=== PATIENT | female | born 1990 | race Caucasian/White ===

== ENCOUNTER 2018-01-12 11:09 | Observation (INO) ==
[2018-01-12] MEDS ORDERED: ONDANSETRON 4 MG/2 ML INJECTION IVP ONE (11:27)
[2018-01-12] MEDS ORDERED: NS 1,000 ML IV ONE (11:27)
[2018-01-12] MEDS: SALINE FLUSH 10ml SYRINGE IVF PRN ×2 (11:38→14:21)
--- NOTE | 2018-01-12 12:30 | XRay Report ---
INDICATION: Tachycardia PROCEDURE: CHEST 2-VIEWS UPRIGHT (PA & LAT) Encounter: Initial COMPARISON: June 05, 2017 FINDINGS: The lungs are clear without evidence of focal abnormal airspace opacity. There is no pleural effusion or pneumothorax. The heart size, mediastinal contours and pulmonary vascularity are within normal limits. There is no significant skeletal abnormality. IMPRESSION: No acute cardiopulmonary disease. .
--- NOTE | 2018-01-12 14:11 | Emergency Department Report ---
Cardiac General HPI - General Chief Complaint: Arrhythmia/Palpitations Stated Complaint: N/V, coughing, stomach pain, migraines Time Seen by Provider: 01/12/18 11:27 Source: patient, RN notes reviewed, old records reviewed Mode of arrival: ambulatory Limitations: no limitations - History of Present Illness HPI narrative: 27yo woman presents to the ER with c/o chest pain. Pt has had lightheadedness, palpitations, cough, and abdominal pain for the last two months. Pt states that she does not have a PCM. Has not sought treatment for her sx in that time. Pt repeatedly denies drug use, episodic or ongoing. Initially told nursing staff that her sx were only 1mo in duration. Occurred At: home Onset (ago): month(s) Duration: constant Severity: severe Context: occurred during rest Activites at Onset: none Prior Chest Pain/Cardiac Workup: other (Meth use) - Related Data Home Medications Medication Instructions Recorded Confirmed No known Home medications [No home 01/12/18 01/12/18 meds] Allergies Allergy/AdvReac Type Severity Reaction Status Date / Time No Known Allergies Allergy Verified 01/12/18 11:41 Review of Systems All systems: reviewed and negative except as stated Cardiovascular: Reports: as per HPI, chest pain, palpitations. Denies: dyspnea on exertion, orthopnea, edema, syncope, paroxysmal nocturnal dyspnea Respiratory: Reports: as per HPI, cough. Denies: dyspnea, wheezes, hemoptysis, stridor [facility] Patient Stated Medical History Hx Urinary Tract Infection Yes Depression Yes Substance Use Disorder Yes: METH,BENZOS,MARIJUANA Medical History Updates: Anxiety. Depression. Marijuana abuse. Methamphetamine abuse - Social History Smoking status: Current every day smoker (1/2ppd) Physical Exam - Limitations Limitations: no limitations - General General appearance: alert, anxious, in distress - Normal Exams: Head:: Normocephalic without trauma Eyes:: Pupils are PERRLA w/ EOMI, No scleral icterus, irritation, or foreign bodies noted ENMT:: No facial trauma, nasal exudates, pharyngeal erythema, or exudates are noted Neck:: Full range of motion, without adenopathy Chest/Respirations:: Clear all devi, with good airflow, and symmetry bilaterally Cardiovascular:: Regular rate and rhythm (Sinus tachycardia), without murmur or gallop, Pulses 2+ all extremities, capillary refill, <2 seconds all extremities Abdomen:: Bowel sounds positive, soft, non-tender, non-distended, no hepatosplenomegaly, masses or bruits noted Lymphatic:: No lymphadenopathy Musculoskeletal:: No tenderness, or deformity noted, good range of motion Integumentary:: No rashes, hives, or bruising noted Neurological:: Patient is alert, cranial nerves, motor/sensory/cerebellar, exams w/o gross deficits - Psychiatric Psychiatric exam: Present: agitated, anxious - Expanded Psychiatric Exam Expanded psych exam: Present: poor eye contact, pressured speech, psychomotor agitation, delusional, paranoid, perseverating, restlessness, uncooperative Course - Consultations Consultation #1: Hospitalist: Will admit for obs, until pt is sober. Time: 15:43 Vital Signs Temperature 98.6 F 01/12/18 11:20 Pulse Rate 136 H 01/12/18 11:20 Respiratory Rate 16 01/12/18 11:20 Blood Pressure 146/83 H 01/12/18 11:20 Pulse Oximetry 98 01/12/18 11:20 Temperature 98.6 F 01/12/18 11:20 Pulse Rate 95 01/12/18 15:41 Respiratory Rate 16 01/12/18 15:41 Blood Pressure 135/89 01/12/18 15:41 Pulse Oximetry 98 01/12/18 15:41 Cardiac General - MDM Narrative Medical decision making narrative: Pt with obvious methamphetamine intoxication on exam. UDS confirms meth use. Initially, pt said that she had a ride and someone to watch her. Later, pt admitted that she was unable to contact anyone. Pt is not sober; actively hallucinating/tweaking. Will contact the hospitalist for obs admission until sober enough to be released. - Differential Diagnosis Differential diagnosis: Likely: palpitations, anxiety, sinus tachycardia (Meth intoxication) - Medical Records Attestation: I reviewed the patient's medical records. - Lab Data Attestation: I reviewed the patient's lab results. Result diagrams: 01/12/18 11:36 01/12/18 11:36 Lab Results 01/12/18 01/12/18 01/12/18 Range/Units 11:36 11:36 11:36 WBC 7.6 (4.5-11.0) T/MM3 RBC 4.76 (4.00-5.20) M/MM3 Hgb 14.1 (12-16) GM/DL Hct 40.8 (36-46) % MCV 85.7 (80-100) UM3 MCH 29.6 (26-34) UUG MCHC 34.6 (31-37) GM/DL RDW Std Deviation 39.7 (36.9-50.2) FL Plt Count 324 (130-400) T/MM3 MPV 9.7 (9.4-12.4) UM3 Immature Gran % (Auto) 0.1 (0.0-0.5) % Neut % (Auto) 52.4 (33-66) % Lymph % (Auto) 40.8 (23-45) % [place] % (Auto) 6.1 (0-9.0) % Eos % (Auto) 0.3 (0-4) % Baso % (Auto) 0.3 (0-2) % Neut # (Auto) 4.0 (1.8-7.7) T/MM3 Lymph # (Auto) 3.1 (1-4.8) T/MM3 [place] # (Auto) 0.5 (0-0.8) T/MM3 Eos # (Auto) 0.0 (0-0.5) T/MM3 Baso # (Auto) 0.0 (0-0.2) T/MM3 Abs Immat Gran (auto) 0.01 (0.00-0.03) T/MM3 Turbidity < 20 (0-20) Sodium 145 (136-146) MEQ/L Potassium 3.0 L (3.6-5) MEQ/L Chloride 107 (98-107) MEQ/L Carbon Dioxide 20 L (22-30) MEQ/L Anion Gap 18 H (5-15) meq/L BUN 9.0 (7-17) MG/DL Creatinine 0.9 (0.7-1.2) mg/dL Estimated Creat Clear 84 (>50) mL/min GFR Calculation 76 (>60) mL/min BUN/Creatinine Ratio 10 (6-26) RATIO Glucose 90 (65-110) MG/DL Calculated Osmolality 278 (261-280) MOSM/KG Calcium 10.3 H (8.4-10.2) MG/DL Total Bilirubin 0.40 (0.20-1.30) MG/DL Icterus Index < 2 (0-7) AST 24 (14-36) U/L ALT 11 (1-35) U/L Alkaline Phosphatase 71 (38-126) U/L Total Protein 8.2 (6.3-8.2) g/dL Albumin 5.0 (3.5-5.0) g/dL Globulin 3.2 (2.4-3.6) G/DL Albumin/Globulin Ratio 1.6 (1.1-2.2) RATIO Serum , Qual Negative (Negative) Specimen Hemolysis < 15 (0-25) Ur Collection Type Urine Color (YELLOW) Urine Clarity Urine pH (5.0-8.0) Ur Specific [place] (1.015-1.025) Urine Protein (NEGATIVE) Urine Glucose (UA) (NEGATIVE) Urine Ketones (NEGATIVE) Urine Occult Blood (NEGATIVE) Urine Nitrate (NEGATIVE) Urine Bilirubin (NEGATIVE) Urine Urobilinogen (NORMAL) EU/DL Ur Leukocyte Esterase (NEGATIVE) Urinalysis Comment Salicylates < 1.0 L (2-20) MG/DL Urine Opiates Screen (Negative) ng/mL Ur Oxycodone Screen (Negative) ng/mL Urine Methadone Screen (Negative) ng/mL Ur Propoxyphene Screen (Negative) ng/mL Acetaminophen < 10 L (10-30) ug/mL Ur Barbiturates Screen (Negative) ng/mL U Tricyclic Antidepress (Negative) ng/mL Ur Phencyclidine Scrn (Negative) ng/mL Ur Amphetamines Screen (Negative) ng/mL U Methamphetamines Scrn (Negative) ng/mL U Benzodiazepines Scrn (Negative) ng/mL Urine Cocaine Screen (Negative) ng/mL U Cannabinoids Screen (Negative) ng/mL Ur Drug Screen Confirm Alcohol, Quantitative 50 (<10) mg/dL 01/12/18 01/12/18 01/12/18 Range/Units 12:57 12:57 12:57 WBC (4.5-11.0) T/MM3 RBC (4.00-5.20) M/MM3 Hgb (12-16) GM/DL Hct (36-46) % MCV (80-100) UM3 MCH (26-34) UUG MCHC (31-37) GM/DL RDW Std Deviation (36.9-50.2) FL Plt Count (130-400) T/MM3 MPV (9.4-12.4) UM3 Immature Gran % (Auto) (0.0-0.5) % Neut % (Auto) (33-66) % Lymph % (Auto) (23-45) % [place] % (Auto) (0-9.0) % Eos % (Auto) (0-4) % Baso % (Auto) (0-2) % Neut # (Auto) (1.8-7.7) T/MM3 Lymph # (Auto) (1-4.8) T/MM3 [place] # (Auto) (0-0.8) T/MM3 Eos # (Auto) (0-0.5) T/MM3 Baso # (Auto) (0-0.2) T/MM3 Abs Immat Gran (auto) (0.00-0.03) T/MM3 Turbidity (0-20) Sodium (136-146) MEQ/L Potassium (3.6-5) MEQ/L Chloride (98-107) MEQ/L Carbon Dioxide (22-30) MEQ/L Anion Gap (5-15) meq/L BUN (7-17) MG/DL Creatinine (0.7-1.2) mg/dL Estimated Creat Clear (>50) mL/min GFR Calculation (>60) mL/min BUN/Creatinine Ratio (6-26) RATIO Glucose (65-110) MG/DL Calculated Osmolality (261-280) MOSM/KG Calcium (8.4-10.2) MG/DL Total Bilirubin (0.20-1.30) MG/DL Icterus Index (0-7) AST (14-36) U/L ALT (1-35) U/L Alkaline Phosphatase (38-126) U/L Total Protein (6.3-8.2) g/dL Albumin (3.5-5.0) g/dL Globulin (2.4-3.6) G/DL Albumin/Globulin Ratio (1.1-2.2) RATIO Serum , Qual (Negative) Specimen Hemolysis (0-25) Ur Collection Type Urine, void-cc/notcc Urine Color Yellow (YELLOW) Urine Clarity Clear Urine pH 7.0 (5.0-8.0) Ur Specific [place] <=1.005 L (1.015-1.025) Urine Protein Negative (NEGATIVE) Urine Glucose (UA) Negative (NEGATIVE) Urine Ketones Negative (NEGATIVE) Urine Occult Blood Negative (NEGATIVE) Urine Nitrate Negative (NEGATIVE) Urine Bilirubin Negative (NEGATIVE) Urine Urobilinogen 0.2 (NORMAL) EU/DL Ur Leukocyte Esterase Negative (NEGATIVE) Urinalysis Comment Microscopic not ind. Salicylates (2-20) MG/DL Urine Opiates Screen Negative (Negative) ng/mL Ur Oxycodone Screen Negative (Negative) ng/mL Urine Methadone Screen Negative (Negative) ng/mL Ur Propoxyphene Screen Negative (Negative) ng/mL Acetaminophen (10-30) ug/mL Ur Barbiturates Screen Negative (Negative) ng/mL U Tricyclic Antidepress Negative (Negative) ng/mL Ur Phencyclidine Scrn Negative (Negative) ng/mL Ur Amphetamines Screen Positive (Negative) ng/mL U Methamphetamines Scrn Positive (Negative) ng/mL U Benzodiazepines Scrn Negative (Negative) ng/mL Urine Cocaine Screen Negative (Negative) ng/mL U Cannabinoids Screen Negative (Negative) ng/mL Ur Drug Screen Confirm Sent out Alcohol, Quantitative (<10) mg/dL - Radiology Data Attestation: I reviewed the patient's radiology results. CXR: IMPRESSION: No acute cardiopulmonary disease. - EKG Data EKG #1 EKG attestation: Yes: I reviewed and interpreted this EKG. EKG shows normal: sinus rhythm, axis, intervals, QRS complexes Rate: tachycardia Interpretation: nonspecific ST-T wave changes Disposition Clinical Impression: Anxiety, Palpitations, Methamphetamine abuse Disposition: 02 To [facility] Print Language: Stateless Condition: Improved Instructions: Methamphetamine Abuse (ED), Anxiety (ED) Additional Instructions: You have symptoms of methamphetamine intoxication (anxiety, confusion, dehydration, chest pain, fast heart rate, nausea, headache, etc). We have given you medication that will help to prevent most of those symptoms. Follow up with your doctor in the next few days for reevaluation and treatment, if needed. Prescriptions: No Action No known Home medications [No home meds] 0 [place]0 [facility] [place]errals: Primary Care,You Choose [Primary Care Provider] - Time of Disposition: 14:36 - Seen By: physician
[2018-01-12 16:58] VITALS: BMI 22.2
--- NOTE | 2018-01-12 17:28 | History & Physical Report ---
History of Present Illness Date: 01/12/18 Chief complaint: Anxiety HPI: Pao Diggs is a healthy 27 y/o who presented to [facility] [facility] on 01/12/18 for further eval of anxiety/panic symptoms. She notes hx of anxiety - she frequently has sx of heart racing, chest pain, dyspnea, dizziness/lightheadedness, sweating, blurred vision, weakness. She also feels depressed but denies SI or thoughts of harming others. She denies any recent triggers. She also notes a productive cough with green sputum x2 months. She's had intermittent fevers, chills, sinus congestion/drainage, sore throat, and allergy symptoms as well. She's had severe abdominal pain and last night vomited twice. She actually has abdominal pain frequently, and it's periumbilical and LUQ. She hasn't been able to eat anything today but has been able to keep up on fluids. She occ has GERD and frequently has indigestion. She's had a few episodes of diarrhea - no blood seen. She denies any urinary problems. No leg swelling. No injuries or wounds. In the ED her HR was tachy at 136. After a liter of NS and IV ativan it slowed into the 90s. EKG showed sinus tachycardia. CXR was unremarkable. CBC was stable. She was hypokalemic with K of 3.0. UDS was pos for meth. She states she smoked meth for the 1st time 2 days ago. She also took a hit of marijuana last night, along with a couple alcoholic drinks. With her tachycardia, anxiety/ depression, and concern for wreckless behaviors, she was admitted to obs status under the hospitalist service. Review of Systems All systems PM: 10-point ROS was reviewed, no additional remarkable complaints except - Constitutional Constitutional: Present: as per HPI - EENMT Eyes: Present: as per HPI Nose: Present: as per HPI Mouth/Throat: Present: as per HPI - Cardiovascular Cardiovascular: Present: as per HPI Vascular: Present: see HPI - Respiratory Respiratory: Present: as per HPI - Gastrointestinal Gastrointestinal: Present: as per HPI - Genitourinary Genitourinary: Present: as per HPI, metrorrhagia - Musculoskeletal Musculoskeletal: Present: muscle weakness (with anxiety) - Integumentary/Breasts Integumentary: Absent: rash, wounds - Neurological Neurological: Present: as per HPI - Psychiatric Psychiatric: Present: as per HPI - Hematologic/Lymphatic Hematologic/Lymphatic: Absent: easy bleeding, easy bruising - Allergic/Immunologic Allergic/Immunologic: Present: as per HPI Past Medical History Medical History: Medical History (Last Updated 01/12/18 @ 17:31 by Maye Buckley APRN) Anxiety Depression Polysubstance abuse Family History Updates: Mother and Father are both healthy. Both grandmothers of heart attacks. 4 sisters and 1 brother - all healthy. Family History: As Above - Social History Smoking status: Current every day smoker Substance use type: marijuana, methamphetamine Alcohol intake frequency: 3 or more drinks per day (once/week) Current occupational status: unemployed Medications Home Medications Medication Instructions Recorded Confirmed Type No known Home medications [No home 01/12/18 01/12/18 History meds] Allergies Allergy/AdvReac Type Severity Reaction Status Date / Time No Known Allergies Allergy Verified 01/12/18 11:41 Exam Vital Signs: Temperature 98.6 F 01/12/18 11:20 Pulse Rate 95 01/12/18 15:41 Respiratory Rate 16 01/12/18 15:41 Blood Pressure 135/89 01/12/18 15:41 Pulse Oximetry 98 01/12/18 15:41 Telemetry Rhythm: Sinus Rhythm Height/Weight/BMI: Height 1.63 m Weight 58.8 kg Body Mass Index 22.2 - Constitutional Present: no acute distress, well nourished, well developed, thin - Routine HEENT Exam Head: Present: normocephalic Eye: Present: PERRL. Absent: conjunctival icterus, scleral injection ENT: Present: mucous membranes moist - Routine Neck Exam Present: supple. Absent: lymphadenopathy - Routine Respiratory Exam Present: CTA bilaterally - Routine Cardiovascular Exam Present: RRR, S1, S2 - Routine Abdominal Exam Present: soft, normoactive bowel sounds, non distended, non tender - Routine Extremities Exam Present: no edema, pulses intact, normal capillary refill. Absent: calf tenderness - Routine Skin Exam Present: intact, dry, warm - Routine Neurological Exam Present: alert, oriented X3, CN II-XII intact, moving all extremities, vision grossly intact, hearing grossly intact, normal speech. Absent: sensory deficit , motor deficit, altered mental status, facial asymmetry - Routine Psychiatric Exam Present: normal thought process, cooperative Results - Labs CBC & Chem 7: 01/12/18 11:36 01/12/18 11:36 Assessment and Plan (1) Methamphetamine abuse Current visit: Yes Status: Acute Assessment and Plan: Assessment Polysubstance abuse Hypokalemia (POA) Sinus tachycardia Anxiety/depression Plan Admit, obs status to CCU. Received 1L of IVF in ED - will start 1/2 NS with KCl @ 100 ml/hr. Hypokalemia - give 40 mEq KCl PO in addition to IVF. Check mg. Sinus tach - improving. Currently rate is in the 90s. Start ranitidine for indigestion/GERD sx. No suicidal ideation. Likely would benefit from outpt psych eval. Consult case management. RT consulted for tobacco cessation. EKG/CXR reviewed. D/W ED RN. DVT Prophylaxis: SCD's Resuscitation Status: Full Code - Physician Narrative Physician: Darryl Valiente MD Narrative: Date: 01/12/18 Time: 2007 Have independently interviewed and examined pt. Chart reviewed. Case discussed with ED physician and my [employer]IST. Care plan developed with my supervision; agree with above. Presented to ED secondary to increasing anxiety and palpitations. Noted [place] for the past 2 months. Evaluated in ED. Lab unremarkable except for hypokalemia and positive meth. Very anxious in ED. With increased anxiousness, not able to get ride home. Place in OBS for monitoring. Since admission, has been doing well. Nursing reports patient has been very pleasant. HR has varied. Breathing well. Lungs: Clear bilaterally, no distress CV: regular AB: soft flat nt MSE: awake alert Plan: OBS. Close monitoring in CCU overnight. IVF for support. Suspect discharge tomorrow if continues to do well. Hospital Course Summary Disclaimer: The visit summary below is not to be considered part of the above Progress Note. Hospital Course: 01/12/18 Admit, obs status to CCU. Received 1L of IVF in ED - will start 1/2 NS with KCl @ 100 ml/hr. Hypokalemia - give 40 mEq KCl PO in addition to IVF. Check mg. Sinus tach - improving. Currently rate is in the 90s. Start ranitidine for indigestion/GERD sx. No suicidal ideation. Likely would benefit from outpt psych eval. RT consulted for tobacco cessation.
[2018-01-12] MEDS ORDERED: ONDANSETRON 4 MG/2 ML INJECTION IVP PRN (17:37)
[2018-01-12] MEDS ORDERED: ACETAMINOPHEN 500 MG TABLET PO PRN (17:37)
[2018-01-12] MEDS ORDERED: 1/2 NS with KCL 20mEq 1,000 ML IV SCH (17:45)
[2018-01-12] MEDS: RANITIDINE 150 MG TABLET PO SCH (20:25)
[2018-01-12] MEDS: NICOTINE 14 MG PATCH TD SCH (21:57)
[2018-01-13] MEDS ORDERED: ONDANSETRON ODT 4 MG TABLET PO PRN (05:18)
[2018-01-13] MEDS ORDERED: NICOTINE 14 MG PATCH TD SCH (09:00)
[2018-01-13] MEDS ORDERED: NICOTINE PATCH REMOVAL TD SCH (09:00)
[2018-01-13] MEDS: RANITIDINE 150 MG TABLET PO SCH (10:20)
--- NOTE | 2018-01-13 10:20 | Progress Note ---
- Date 01/13/18 Subjective: F/U: Polysubstance abuse, Hypokalemia (POA) Doing much better this morning. Not having palpitations. Anxiety improved. Did have nausea this am with slight amount of emesis. Breathing well. Steady when up. Not agitated or restless. Objective Vital signs: Temperature 98.5 F 01/13/18 04:00 Pulse Rate 81 01/13/18 05:00 Respiratory Rate 20 01/13/18 05:00 Blood Pressure 118/66 01/13/18 05:00 Pulse Oximetry 99 01/13/18 05:00 Height/Weight/BMI: Height 1.63 m Weight 58.8 kg Body Mass Index 22.2 - Constitutional Present: no acute distress, well nourished, well developed, average body habitus , cooperative. Absent: combative, agitated, somnolent, obtunded - Routine HEENT Exam Head: Present: normocephalic, atraumatic Eye: Present: EOMI, PERRL, normal accommodation ENT: Present: mucous membranes moist - Routine Respiratory Exam Present: CTA bilaterally. Absent: rales, respiratory distress, rhonchi, stridor , wheezes, crackles - Routine Cardiovascular Exam Present: RRR, no murmur - Routine Abdominal Exam Present: soft, normoactive bowel sounds, non distended, non tender. Absent: guarding - Routine Extremities Exam Present: no edema, pulses intact. Absent: cyanosis, clubbing - Routine Musculoskeletal Exam Musculoskeletal: Present: no clubbing or cyanosis, normal strength - Routine Skin Exam Present: dry, warm - Routine Neurological Exam Present: alert, oriented X3, CN II-XII intact, moving all extremities, vision grossly intact, hearing grossly intact, normal speech. Absent: motor deficit, altered mental status - Routine Psychiatric Exam Present: normal affect, cooperative. Absent: agitated, paranoid, manic Results - Labs CBC & Chem 7: 01/12/18 11:36 01/13/18 03:53 Assessment and Plan (1) Methamphetamine abuse Current visit: Yes Status: Acute Assessment and Plan: Assessment Methamphetamine intoxication Polysubstance abuse Palpitations Hypokalemia (POA) Sinus tachycardia Anxiety/depression Tobacco dependency Plan Clinically improved. HR and blood pressure normal. Potassium normalized. Not anxious, agitated, or restless. Medically stable for discharge to home. Strongly encourage substance avoidance. Encouraged patient to establish primary care. See orders for details. Case discussed with CM and CCU nursing. Time spent with patient care and discharge greater than 30 minutes. DVT Prophylaxis: SCD's Resuscitation Status: Full Code - Physician Narrative Physician: Darryl Valiente MD Narrative: Date: 01/13/18 Time: 1017 Hospital Course Summary Disclaimer: The visit summary below is not to be considered part of the above Progress Note. Hospital Course: 01/12/18 Admit, obs status to CCU. Received 1L of IVF in ED - will start 1/2 NS with KCl @ 100 ml/hr. Hypokalemia - give 40 mEq KCl PO in addition to IVF. Check mg. Sinus tach - improving. Currently rate is in the 90s. Start ranitidine for indigestion/GERD sx. No suicidal ideation. Likely would benefit from outpt psych eval. RT consulted for tobacco cessation. 01/13/18 Clinically improved. HR and blood pressure normal. Potassium normalized. Not anxious, agitated, or restless. Medically stable for discharge to home. Strongly encourage substance avoidance. Encouraged patient to establish primary care. See orders for details.
[2018-01-13] MEDS: NICOTINE 14 MG PATCH TD SCH (10:21)
--- NOTE | 2018-01-13 10:34 | Discharge Summary ---
Discharge Information Date of admission: 01/12/18 16:24 Anticipated date of discharge: 01/13/18 Attending Physician: Darryl Valiente MD Primary care physician: [facility] Consults: Case Management Consult - Discharge Diagnosis (1) Methamphetamine abuse Status: Acute Problems Reviewed?: Yes Discharge diagnosis Methamphetamine intoxication Associated conditions and complications Polysubstance abuse Palpitations Hypokalemia (POA) Sinus tachycardia Anxiety/depression Tobacco dependency - Laboratory Labs: Admit Lab 01/12/18 01/12/18 11:36 11:36 Sodium 145 Potassium 3.0 L Chloride 107 Carbon Dioxide 20 L Anion Gap 18 H BUN 9.0 Creatinine 0.9 Estimated Creat Clear 84 GFR Calculation 76 BUN/Creatinine Ratio 10 Glucose 90 Calculated Osmolality 278 Calcium 10.3 H Total Bilirubin 0.40 AST 24 ALT 11 Alkaline Phosphatase 71 Total Protein 8.2 Albumin 5.0 Globulin 3.2 Albumin/Globulin Ratio 1.6 Serum , Qual Negative Admit Lab 01/12/18 01/12/18 11:36 12:57 Ur Amphetamines Screen Positive U Methamphetamines Scrn Positive Alcohol, Quantitative 50 01/12/18 11:36 01/13/18 03:53 - Radiology Radiology: Date of Exam: 01/12/18 Type of Exam: XR chest 2V FINDINGS: The lungs are clear without evidence of focal abnormal airspace opacity. There is no pleural effusion or pneumothorax. The heart size, mediastinal contours and pulmonary vascularity are within normal limits. There is no significant skeletal abnormality. IMPRESSION: No acute cardiopulmonary disease. History of Present Illness HPI: Pao Diggs is a healthy 27 y/o who presented to [facility] on 01/12/18 for further eval of anxiety/panic symptoms. She notes hx of anxiety - she frequently has sx of heart racing, chest pain, dyspnea, dizziness/lightheadedness, sweating, blurred vision, weakness. She also feels depressed but denies SI or thoughts of harming others. She denies any recent triggers. She also notes a productive cough with green sputum x2 months. She's had intermittent fevers, chills, sinus congestion/drainage, sore throat, and allergy symptoms as well. She's had severe abdominal pain and last night vomited twice. She actually has abdominal pain frequently, and it's periumbilical and LUQ. She hasn't been able to eat anything today but has been able to keep up on fluids. She occ has GERD and frequently has indigestion. She's had a few episodes of diarrhea - no blood seen. She denies any urinary problems. No leg swelling. No injuries or wounds. In the ED her HR was tachy at 136. After a liter of NS and IV Ativan it slowed into the 90s. EKG showed sinus tachycardia. CXR was unremarkable. CBC was stable. She was hypokalemic with K of 3.0. UDS was pos for meth. She states she smoked meth for the 1st time 2 days ago. She also took a hit of marijuana last night, along with a couple alcoholic drinks. With her tachycardia, anxiety/ depression, and concern for reckless behaviors, she was admitted to obs status under the hospitalist service. For complete details of the H&P refer to that document. Objective Vital signs: Temperature 98.5 F 01/13/18 04:00 Pulse Rate 81 01/13/18 05:00 Respiratory Rate 20 01/13/18 05:00 Blood Pressure 118/66 01/13/18 05:00 Pulse Oximetry 99 01/13/18 05:00 Height/Weight/BMI: Height 1.63 m Weight 58.8 kg Body Mass Index 22.2 Hospital Course This is a general summary of the patient's hospital course. For more details refer to the complete medical record. Hospital course: 01/12/18 Admit, obs status to CCU. Received 1L of IVF in ED - will start 1/2 NS with KCl @ 100 ml/hr. Hypokalemia - give 40 mEq KCl PO in addition to IVF. Check mg. Sinus tach - improving. Currently rate is in the 90s. Start ranitidine for indigestion/GERD sx. No suicidal ideation. Likely would benefit from outpt psych eval. RT consulted for tobacco cessation. 01/13/18 Clinically improved. HR and blood pressure normal. Potassium normalized. Not anxious, agitated, or restless. Medically stable for discharge to home. Strongly encourage substance avoidance. Encouraged patient to establish primary care. See orders for details. Time spent with patient: discharge greater than 30 minutes Resuscitation Status: Full Code Discharge Plan - Discharge Disposition Discharge Date: 01/13/18 Disposition: 01 Discharged Home, Self-Care *Condition: Improved Reason For Visit (Visit label in EMR): Methamphetamine Intoxication - Discharge Medications *Discharge Medications: Continue No known Home medications [No home meds] 0 #0 misc - Discharge Packet/Instructions *Diet: Regular diet as tolerated *Activity: As tolerated *Pain Management/Treatment: Tylenol safe for pain - use as instructed on over the counter bottle. Do not take more than 3250mg in any 24 hour period of time. *Wound Care: n/a *Expected Signs/Symptoms: Resolution of palpitations as long as you avoid substances. *Notify Physician if: Temp > 100.4. Intractable nausea or vomiting. *During Business Hours Contact: Contact your primary care physician. *After Business Hours Contact: Call [facility] ([phone]) and have your primary care provider contacted. *Pending Lab/Results: No Pending Lab - Referrals/Follow Up *Referrals/Follow Up: [facility] [Primary Care Provider] - (Please establish primary care provider in the next week for continued health management. [facility] is a good option for health care. ) - Patient Handouts - Dismissal Complete Discharge Instructions are:: Complete Physician Narrative - Narrative Physician: Darryl Valiente MD Attestation Narrative: Date: 01/13/18 Time: 1030 I have independently interviewed and examined patient prior to discharge. See my progress note for details. Medically stable for discharge to home.
[2018-01-13 14:13] VITALS: BP 117/64; PULSE 101; RESP 48; TEMP 97.8; O2SAT 95
== END 2018-01-13 13:35 | disposition home or self-care (01) ==
LOC: EDHOLD 11:09 → ED 11:09 → CCU 16:40
PROVIDERS: ADMIT Hospitalist; ATTEND Hospitalist